=== PATIENT | male | born 2000 | race Caucasian/White ===

== ENCOUNTER 2020-08-22 14:50 | Emergency (ER) | payer BC ==
[~2020-08-22] VITALS: Ht 185.3 cm; Wt 74.8 kg
[2020-08-22] MEDS ORDERED: SUCRALFATE 1 GM (CARAFATE) TAB PO ONE (15:15)
[2020-08-22] MEDS ORDERED: LIDOCAINE 2% VISCOUS 15 ML UDC PO ONE (15:15)
[2020-08-22] MEDS ORDERED: ANTACID SUSP 30 ML UDC (MYLANTA) PO ONE (15:15)
--- NOTE | 2020-08-22 15:44 | ED Chest Pain ---
General Chief Complaint: Chest Pain Stated Complaint: CP,ARM PAIN Nursing Triage Note: PT AMB TO [facility] 6 WITH COMPLAINT OF CHEST PAIN AND LEFT ARM PAIN THAT STARTED AT 1345. STATES SYMPTOMS STARTED AFTER EATING PIZZA FOR LUNCH Nursing Sepsis Screen: No Definite Risk Source: patient Exam Limitations: no limitations History of Present Illness Date Seen by Provider: Aug 22, 2020 Time Seen by Provider: 15:00 Initial Comments Patient is a 20-year-old male who presents to the emergency department today with a chief complaint of midsternal chest discomfort that he describes as like a mild ache. He also has a little pain just above his left elbow. Patient states that he was eating pizza at around 1:00 and approximately an hour and a half later he started having this discomfort. Patient states that he did take some ibuprofen after the onset of the discomfort. Patient denies any associated symptoms of shortness of breath, diaphoresis, nausea or vomiting. He is never had pain like this before. Laughing makes the pain a little bit worse. Nothing is made it any better. No recent illnesses such as fevers, chills, cough/URI symptoms. No other GI or symptoms are reported. No swelling in his legs or cramping in his calves. Patient states that he knows that some of his uncles see a police communications operator but he is not sure what for. No first-degree relatives with significant coronary artery disease. No sudden cardiac is reported in the family. All other review of systems reviewed and negative except as stated. Timing/Duration: 1 hour Severity/Quality: mild Location: central Radiation: no radiation Activities at Onset: none Prior CP/Workup: no prior chest pain, no prior cardiac workup Modifying Factors: improves with other (laughing makes the pain a little worse) Allergies and Home Medications Allergies Coded Allergies: No Known Drug Allergies (Unverified , 08/22/20) Patient Home Medication List Home Medication List Reviewed: Yes Review of Systems Review of Systems Constitutional: see HPI EENTM: No Symptoms Reported Respiratory: No Symptoms Reported Cardiovascular: Chest Pain Gastrointestinal: No Symptoms Reported Genitourinary: No Symptoms Reported Musculoskeletal: muscle pain (Left elbow) Skin: no symptoms reported All Other Systems Reviewed Negative Unless Noted: Yes Past Jotxdtc-Ayxzwv-Tndfpj Hx Patient Social History Alcohol Use: Occasionally Uses Smoking Status: Never a Smoker Recent Infectious Disease Expo: No Recent Hopitalizations: No Immunizations Up To Date Tetanus Booster (TDap): Unknown PED Vaccines UTD: Yes Seasonal Allergies Seasonal Allergies: No Past Medical History Surgeries: No Respiratory: No Cardiac: No Neurological: No Genitourinary: No Gastrointestinal: No Musculoskeletal: No Endocrine: No HEENT: No Cancer: No Psychosocial: No Integumentary: No Blood Disorders: No Physical Exam Vital Signs Vital Signs - First Documented 08/22/20 14:57 Temp 37.8 Pulse 73 Resp 17 B/P (MAP) 142/89 (106) Pulse Ox 100 O2 Delivery Room Air Capillary Refill : Less Than 3 Seconds Height, Weight, BMI Height: '" Weight: lbs. oz. kg; 21.00 BMI Method: General Appearance: No Apparent Distress, WD/WN HEENT: PERRL/EOMI Neck: Full Range of Motion Respiratory: Lungs Clear, Normal Breath Sounds, No Accessory Muscle Use, No Respiratory Distress Cardiovascular: Regular Rate, Rhythm, No Edema, No Gallop, No JVD, No Murmur, Normal Peripheral Pulses, Other (No reproducible chest wall tenderness) Gastrointestinal: Normal Bowel Sounds, No Organomegaly, Non Tender, Soft Extremity: Normal Capillary Refill, Normal Inspection, Normal Range of Motion, No Calf Tenderness, No Pedal Edema, Other (Slight tenderness to palpation left elbow) Neurologic/Psychiatric: Alert, Oriented x3, No Motor/Sensory Deficits, Normal Mood/Affect Skin: Normal Color, Warm/Dry Progress/Results/Core Measures Results/Orders My Orders Orders - CHASE WALKER MD Ekg Tracing (08/22/20 15:06) Chest 1 View, Ap/Pa Only (08/22/20 15:06) Lidocaine 2% Viscous 15 Ml (Xylocaine Vi (08/22/20 15:15) Antacid Suspension (Mylanta Suspension (08/22/20 15:15) Sucralfate Tablet (Carafate Tablet) (08/22/20 15:15) Medications Given in ED Current Medications Medications Dose Ordered Sig/[place] Route Start Time Stop Time Status Last Admin Dose Admin Al Hydrox/Mg Hydrox/Simethicone 30 ml ONCE ONCE PO 08/22/20 15:15 08/22/20 15:16 DC 08/22/20 15:40 30 ML Lidocaine HCl 5 ml ONCE ONCE PO 08/22/20 15:15 08/22/20 15:16 DC 08/22/20 15:40 5 ML Sucralfate 1 gm ONCE ONCE PO 08/22/20 15:15 08/22/20 15:16 DC 08/22/20 15:40 1 GM Vital Signs/I&O 08/22/20 08/22/20 14:57 14:57 Temp 37.8 Pulse 73 Resp 17 B/P (MAP) 142/89 (106) Pulse Ox 100 O2 Delivery Room Air Room Air Blood Pressure Mean: 106 Progress Progress Note : Time: 16:02 Progress Note EKG and chest x-ray reviewed, no abnormalities found on either one. Patient has no risk factors whatsoever for acute coronary syndrome. He looks well, nontoxic. He was given a GI cocktail, lidocaine Maalox and Carafate. He reports no significant improvement in his discomfort. He states the pain "comes in spurts". He only took 2 ibuprofen at the onset I have recommended that he take a total of 800 mg. I recommended that he eat whenever he take ibuprofen. He verbalizes understanding. Patient's heart score is 0. No clinical or objective findings to warrant further work-up from the emergency department perspective. Patient will be discharged home with good return precautions. He verbalized understanding. All questions are sought and answered. He is stable for discharge. Initial ECG Impression Date: Aug 22, 2020 Initial ECG Impression Time: 15:03 Initial ECG Rate: 66 Initial ECG Rhythm: Normal Sinus Initial ECG Intervals: Normal Initial ECG Impression: Normal Initial ECG Comparisson: No Previous ECG Available Comment Right bundle branch block Diagnostic Imaging Diagonstic Imaging: Xray Plain Films/CT/US/NM/MRI: chest Comments Normal mediastinal structures, normal bony thorax, no infiltrates or effusions are of note. Departure Impression Primary Impression: Atypical chest pain Disposition: 01 HOME, SELF-CARE Condition: Stable Departure-Patient Inst. Decision time for Depature: 15:42 Referrals: [employer] [facility] (PCP/Family) Primary Care Physician Patient Instructions: Chest Pain That Is Not Caused by the Heart (DC) Add. Discharge Instructions: Take over the counter tylenol or ibuprofen as needed for pain. You can also take TUMS or MAALOX as needed for heartburn type symptoms. Follow up with the formerly named [facility] or your primary care doctor. Return to the Emergency Department for any worsening symptoms, new concerns or emergent complaints. CHASE WALKER MD Aug 22, 2020 15:44
--- NOTE | 2020-08-22 15:54 | Diagnostic Imaging Report ---
EXAMINATION: Chest 1 view. HISTORY: chest pain COMPARISON: None available. FINDINGS: Heart size and pulmonary vasculature are normal. The lungs are clear without consolidation, pleural effusion, or pneumothorax. The osseous structures are intact. IMPRESSION: No acute radiographic abnormality in the chest. Dictated by: Dictated on workstation # [id number]
[2020-08-22 16:10] VITALS: BP 138/90
== END 2020-08-22 16:10 | disposition home or self-care (01) ==
LOC: ER 14:55
DX: R07.89 Other chest pain (principal)
CPT/HCPCS: 71045; 93005